=== PATIENT | female | born 1945 | race Caucasian/White ===

== ENCOUNTER 2018-11-07 09:24 | Observation (INO) | payer MEDICARE, OTHER ==
[~2018-11-07 09:24] MED LIST: CEFAZOLIN 2 GM/50 ML (PMX) 50 ML IVPB
[2018-11-07] MEDS ORDERED: PROPOFOL 20 ML (13:19)
[2018-11-07] MEDS ORDERED: FENTAnyl 50 MCG/ML VIAL ×2 (13:19→13:52)
[2018-11-07] MEDS ORDERED: LIDOCAINE 2% (SDV) 5 ML INJ (13:19)
[2018-11-07] MEDS ORDERED: ROCURONIUM 50 MG INJ (13:19)
[2018-11-07] MEDS ORDERED: CEFAZOLIN 1 GM INJ (13:38)
[2018-11-07] MEDS ORDERED: PHENYLephrine 10 MG INJ (13:44)
[2018-11-07] MEDS ORDERED: METOCLOPRAMIDE 10 MG INJ (13:47)
[2018-11-07] MEDS ORDERED: FAMOTIDINE 20 MG INJ (13:47)
[2018-11-07] MEDS ORDERED: ONDANSETRON 4 MG INJ (13:47)
[2018-11-07] MEDS ORDERED: SUGAMMADEX SODIUM 200 MG/2 ML VIAL IV (14:19)
[2018-11-07] MEDS ORDERED: HYDROmorphONE 1 MG/5 ML IV SYRINGE IV (14:30)
[2018-11-07] MEDS ORDERED: OXYCODONE/ACETAMINOPHEN (5/325) TAB PO ×2 (14:30)
[2018-11-07] MEDS ORDERED: ALBUTEROL 0.083% (NEB) 2.5 MG/3 ML AMP HHN (14:30)
[2018-11-07] MEDS ORDERED: hydrALAzine 20 MG INJ IV (14:30)
[2018-11-07] MEDS ORDERED: LABETALOL HCL 20MG INJ IV (14:30)
[2018-11-07] MEDS ORDERED: LABETALOL HCL 20MG INJ (14:42)
[2018-11-07] MEDS: BUPIVACAINE 0.5%/EPI (SDV) 30 ML INJ (15:09)
[2018-11-07] MEDS: LIDOCAINE 1% (MPF) 30 ML INJ (15:10)
[2018-11-07] MEDS: MEPERIDINE 25 MG INJ IV (15:21)
[2018-11-07] MEDS: HYDROmorphONE 1 MG/5 ML IV SYRINGE IV ×3 (15:21→15:57)
[2018-11-07] MEDS: ONDANSETRON 4 MG INJ IV ×2 (15:21→16:53)
[2018-11-07] MEDS ORDERED: IBUPROFEN 600 MG TAB PO (15:30)
[2018-11-07] MEDS: HYDROCODONE/APAP (5/325) TAB PO (23:42)
[2018-11-08] MEDS: HYDROCODONE/APAP (5/325) TAB PO ×3 (05:00→09:42)
[2018-11-08 06:17] LABS: ADD MAN DIFF? NO
[2018-11-08 06:24] LABS: WHITE BLOOD COUNT 9.5 10^3/ul (4.8-10.8)
[2018-11-08 06:24] LABS: BASOPHILS % 0.3 % (0.0-2.0); HEMATOCRIT 38.9 % (37.0-47.0); HEMOGLOBIN 12.8 g/dl (12.0-16.0); LYMPHOCYTES # 1.8 10^3/ul (0.8-2.9); LYMPHOCYTES % 18.5 % (15.0-51.0); MEAN CORPUSCULAR HEMOGLOBIN 32.2 pg (29.0-33.0); MEAN CORPUSCULAR HGB CONC 32.9 g/dl (32.0-37.0); MEAN PLATELET VOLUME 9.6 fl (7.4-10.4); MONOCYTE # 0.8 10^3/ul (0.3-0.9); NEUTROPHIL # 6.9 10^3/ul (1.6-7.5); NEUTROPHILS % 72.8 % (39.0-77.0); PLATELET COUNT 246 10^3/UL (140-415); RED BLOOD COUNT 3.97 10^6/ul (4.20-5.40); RED CELL DISTRIBUTION WIDTH 12.1 % (11.5-14.5)
[2018-11-08 06:41] LABS: ANION GAP 8 (5-13); BLOOD UREA NITROGEN 14 mg/dl (7-20); CALCIUM 8.8 mg/dl (8.4-10.2); CARBON DIOXIDE 28 mmol/L (21-31); CHLORIDE 103 mmol/L (97-110); CREATININE 0.49 mg/dl (0.44-1.00); GLUCOSE 142 mg/dl (70-220); POTASSIUM 3.4 mmol/L (3.5-5.1); SODIUM 139 mmol/L (135-144)
[2018-11-08] MEDS ORDERED: HYDROCODONE/APAP (10/325) TAB PO (10:30)
[2018-11-08] MEDS: morphine 2 MG INJ IV ×2 (10:42→15:00)
[2018-11-08] MEDS: POTASSIUM CHLORIDE (SR) 10 MEQ TAB PO ×2 (10:42→22:01)
[2018-11-08] MEDS ORDERED: GLUCOSE GEL 15 GRAM TUBE PO ×2 (12:00)
[2018-11-08] MEDS: INSULIN ASPART [NOVOLOG] 3 ML PEN SC ×3 (12:00→20:16)
[2018-11-08] MEDS ORDERED: DEXTROSE 50% 50 ML SYRINGE IV ×2 (12:00)
[2018-11-08] MEDS ORDERED: GLUCOSE GEL 15 GRAM TUBE BUCCAL (12:00)
[2018-11-08] MEDS ORDERED: GLUCAGON 1 MG INJ IM (12:00)
[2018-11-08] MEDS: AMLODIPINE 5 MG TAB PO (14:58)
[2018-11-08] MEDS: ONDANSETRON 4 MG INJ IV (20:06)
[2018-11-08] MEDS: ACETAMINOPHEN 325 MG TAB PO (22:06)
[2018-11-09] MEDS: ACCU-CHEK XX (02:00)
[2018-11-09 07:21] LABS: ADD MAN DIFF? NO
[2018-11-09 07:24] LABS: WHITE BLOOD COUNT 10.3 10^3/ul (4.8-10.8)
[2018-11-09 07:24] LABS: BASOPHILS % 0.3 % (0.0-2.0); EOSINOPHILS # 0.1 10^3/ul (0.0-0.5); EOSINOPHILS % 0.7 % (0.0-7.0); HEMATOCRIT 37.1 % (37.0-47.0); HEMOGLOBIN 12.3 g/dl (12.0-16.0); LYMPHOCYTES # 1.1 10^3/ul (0.8-2.9); LYMPHOCYTES % 10.3 % (15.0-51.0); MEAN CORPUSCULAR HEMOGLOBIN 32.5 pg (29.0-33.0); MEAN CORPUSCULAR HGB CONC 33.2 g/dl (32.0-37.0); MEAN CORPUSCULAR VOLUME 97.9 fl (82.0-101.0); MEAN PLATELET VOLUME 9.6 fl (7.4-10.4); MONOCYTES % 9.6 % (0.0-11.0); NEUTROPHIL # 8.1 10^3/ul (1.6-7.5); NEUTROPHILS % 78.4 % (39.0-77.0); PLATELET COUNT 217 10^3/UL (140-415); RED BLOOD COUNT 3.79 10^6/ul (4.20-5.40); RED CELL DISTRIBUTION WIDTH 12.1 % (11.5-14.5)
[2018-11-09 07:47] LABS: ANION GAP 10 (5-13); BLOOD UREA NITROGEN 11 mg/dl (7-20); CALCIUM 8.6 mg/dl (8.4-10.2); CARBON DIOXIDE 30 mmol/L (21-31); CHLORIDE 96 mmol/L (97-110); CREATININE 0.46 mg/dl (0.44-1.00); GLUCOSE 169 mg/dl (70-220); POTASSIUM 3.4 mmol/L (3.5-5.1); SODIUM 136 mmol/L (135-144)
[2018-11-09 07:53] LABS: B-TYPE NATRIURETIC PEPTIDE 537 PG/ML (0-450)
[2018-11-09] MEDS: INSULIN ASPART [NOVOLOG] 3 ML PEN SC (08:00)
[2018-11-09] MEDS: LEVOTHYROXINE 112 MCG TAB PO (08:56)
[2018-11-09] MEDS: POTASSIUM CHLORIDE (SR) 10 MEQ TAB PO (08:57)
[2018-11-09] MEDS: AMLODIPINE 5 MG TAB PO (08:58)
[2018-11-09] MEDS: ACETAMINOPHEN 325 MG TAB PO (11:17)
== END 2018-11-09 14:13 | disposition home or self-care (01) ==
LOC: SDS 09:24 → REC 16:58 → PP2 19:18
PROVIDERS: Surgery
DX: K43.2 Incisional hernia without obstruction or gangrene (principal); K66.0 Peritoneal adhesions (postprocedural) (postinfection); E03.9 Hypothyroidism, unspecified; I10 Essential (primary) hypertension; E11.9 Type 2 diabetes mellitus without complications; K21.9 Gastro-esophageal reflux disease without esophagitis; M19.90 Unspecified osteoarthritis, unspecified site; M81.0 Age-related osteoporosis without current pathological fracture; E66.9 Obesity, unspecified; Z68.31 Body mass index [BMI] 31.0-31.9, adult; Z79.84 Long term (current) use of oral hypoglycemic drugs
CPT/HCPCS: 49652; 80048; 82962; 83880; 85025; 88302; 99217; G0378